=== PATIENT | female | born 1955 | race Caucasian/White ===

== ENCOUNTER → 2017-06-03 | Day surgery (SDC) | payer MEDICAID ==
[~2017-06-03] MED LIST: Lidocaine 1% 20 ML MDV ONE
[2017-06-03 08:50] VITALS: BP 139/92
--- NOTE | 2017-06-04 07:03 | OR ---
DATE OF OPERATION: 06/03/2017 PREOPERATIVE DIAGNOSIS: VENOUS INSUFFICIENCY WITH PAINFUL VARICOSITIES. POSTOPERATIVE DIAGNOSIS: VENOUS INSUFFICIENCY WITH PAINFUL VARICOSITIES. SURGEON: Adryan Fisher MD PROCEDURE: CASSIE, RIGHT GSV. ANESTHESIA: Local tumescent. COMPLICATIONS: None. SPECIMEN: None. FINDINGS: Successfully CASSIE, right GSV. 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 She has elected to proceed with endovenous ablation. DESCRIPTION OF PROCEDURE: The patient was brought to the operating room site and the insufficient saphenous vein mapped via ultrasound and diagrammed on the overlying skin of the right lower extremity along with the access site. The entire limb was prepped and draped in sterile fashion. The patient was placed in reverse Trendelenburg position. Local anesthesia of 1% lidocaine was instilled at the access site. The vein was accessed using ultrasound guidance and Seldinger technique with a guidewire introduced through the needle which was then removed. A small incision was made with an 11 blade scalpel and the sheath was placed over the guidewire and advanced into the vein without complication, the guidewire was removed, and the sheath was flushed. Radiofrequency probe was then placed into the vein through the sheath and positioned approximately 2.2 cm distal to the saphenofemoral junction under ultrasound guidance. After probe position confirmed via ultrasound, tumescent anesthesia was infiltrated under ultrasound guidance into the perivenous compartment along the length of the vein from the entry site to the saphenofemoral junction until a halo fluid was noted around the vein. The patient was then placed back in Trendelenburg position to exsanguinate the superficial venous system. Radiofrequency probe position was confirmed with ultrasound and with direct external compression along the length of the heating element, radiofrequency energy was applied. The vein was segmentally ablated by heating a 7 cm segment and indexing the catheter 4 x 6.5 cm until treatment length complete. Device temperature was maintained at 120 degrees Celsius with an initial power level of 40 osei, dropping to below 20 for each treatment. Total radiofrequency treatment time was 4 minutes with 12 radiofrequency cycles. The catheter and sheath were removed without complication and ultrasound confirmed successful treatment. Hemostasis was achieved with direct pressure and skin dressing was applied. The leg was and was wrapped with compression bandage all way from the level of the foot to the groin. The patient was stable in the recovery room. FATUMA/RACHAEL /[id number]
== END ==
LOC: CC.SDS 06:32
PROVIDERS: ATTEND Family Medicine
DX: I83.811 Varicose veins of right lower extremity with pain (principal); Z88.5 Allergy status to narcotic agent; Z91.013 Allergy to seafood
CPT/HCPCS: 36475; A4216

== ENCOUNTER → 2017-06-16 | Day surgery (SDC) | payer MEDICAID ==
[2017-06-16 08:28] VITALS: BP 150/78
--- NOTE | 2017-06-16 20:34 | OR ---
DATE OF OPERATION: 06/16/2017 PREOPERATIVE DIAGNOSIS: VENOUS INSUFFICIENCY WITH PAINFUL VARICOSITIES. POSTOPERATIVE DIAGNOSIS: VENOUS INSUFFICIENCY WITH PAINFUL VARICOSITIES. SURGEON: Adryan Fisher MD PROCEDURE: CASSIE, LEFT GSV. ANESTHESIA: Local tumescent. COMPLICATIONS: None. SPECIMEN: None. FINDINGS: Successful CASSIE, left GSV. INDICATIONS: The patient has documented saphenofemoral insufficiency with painful varicosities. She elects to proceed with endovenous ablation. DESCRIPTION OF PROCEDURE: The patient was brought to the operating room suite and the insufficient saphenous vein in the left lower extremity mapped via ultrasound and diagrammed on the overlying skin along with the access site just below the knee. The entire limb was prepped and draped in sterile fashion. The patient was placed in reverse Trendelenburg position. 1% lidocaine was used for local anesthesia at the access site. The vein was accessed using ultrasound guidance and Seldinger technique with a needle inserted in the vein, guidewire inserted through the needle which was then exchanged over the guidewire for a 6- Romansh sheath after a small incision made with an 11 blade scalpel. Sheath was held in place by skin tension. Guidewire was removed. The sheath was flushed. The radiofrequency probe was placed into the vein through the sheath and positioned approximately 2.2 cm distal to the saphenofemoral junction under ultrasound guidance. After probe position again verified via ultrasound, tumescent anesthesia was infiltrated into the perivenous compartment along the length of the vein achieving a halo effect from the entry site to the junction in usual fashion. The patient was placed back in Trendelenburg position to exsanguinate the superficial system. The radiofrequency probe position again confirmed via ultrasound and under direct external compression along the length of the heating element, radiofrequency energy was applied. The vein was ablated, heating a 7 cm segment indexing the catheter forward 6.5 cm until treatment length complete. Device temperature was maintained at 120 degrees Celsius with an initial power level of 40 W, dropping to below 20 W for each treatment. Total treatment time was 3 minutes and 40 seconds with 11 radiofrequency cycles. Total of 150 mL of tumescent was used. Repeat ultrasound confirmed treatment catheter and sheath were withdrawn and hemostasis was achieved with direct pressure. Skin incision was closed with a bandage and compression wrap from the level of the foot to the groin. The patient was stable in recovery room. FATUMA/RACHAEL /[id number]
== END ==
LOC: CC.SDS 06:34
PROVIDERS: ATTEND Family Medicine
DX: I83.812 Varicose veins of left lower extremity with pain (principal); I87.2 Venous insufficiency (chronic) (peripheral)

== ENCOUNTER → 2020-05-18 | Day surgery (SDC) | payer MEDICAID ==
[~2020-05-18] MED LIST changes: +Ketamine 200 MG/20 ML MDV ONE; +Lactated Ringers 1,000 ML IV SCH; -Lidocaine 1% 20 ML MDV ONE; +Propofol 200 MG/20 ML SDV ONE
[2020-05-18 09:13] VITALS: BP 113/73; PULSE 61
--- NOTE | 2020-05-18 12:37 | OR ---
DATE OF OPERATION: 05/18/2020 PREOPERATIVE DIAGNOSIS: 1. EPIGASTRIC PAIN. 2. FAMILY HISTORY OF COLON CANCER. POSTOPERATIVE DIAGNOSIS: 1. EPIGASTRIC PAIN. 2. FAMILY HISTORY OF COLON CANCER. SURGEON: Adryan Fisher MD PROCEDURE: 1. DIAGNOSTIC EGD WITH BIOPSIES X3, MITCHELL. 2. FULL-LENGTH COLONOSCOPY. ANESTHESIA: MAC. COMPLICATIONS: None. SPECIMEN: 1. Antral biopsy x1. 2. Fundal biopsy x1. 3. Distal esophageal biopsy x1. 4. Antral MITCHLEL. FINDINGS: 1. Full-length diagnostic EGD. 2. Diffuse gastritis, chronic in nature. 3. Small hiatal hernia with reflux esophagitis and associated nonobstructing Schatzki's ring. 4. Full-length colonoscopy. 5. Mild sigmoid diverticulosis. RECOMMENDATIONS: Routine followup colonoscopy every 5 years, medical followup for her chronic reflux with Kirstin Allen. INDICATIONS: The patient had been having some ongoing epigastric pain and reflux symptoms. She was sent for a diagnostic EGD along with a colonoscopy for a family history of colon cancer. DESCRIPTION OF PROCEDURE: The patient was prepped and draped, placed in the left lateral decubitus position. A lubricated Olympus gastroscope was inserted over a bit, advanced to cricopharyngeus area, and intubated in the esophagus. The esophageal lining was benign in its entire course. The Z-line was crisp around 39 cm. There is a mild- sized hiatal hernia with spontaneous reflux and very mild distal esophagitis associated with a nonobstructing Schatzki's ring. Biopsy was taken of the most affected portion. The scope was advanced into the stomach, through the pylorus, and into the second portion of the duodenum. This and the duodenal bulb were both benign. The scope was brought back into the stomach and retroflexed. The upper fundus and cardia were essentially benign. Starting in the proximal portion of the fundus and extending all the way through the antrum, the patient had diffuse and chronic- appearing gastritis without any active inflammation or ulceration. Biopsy of the antrum and fundus were taken along with an antral MITCHELL. Air was then suctioned from the stomach and the scope removed without complication. A lubricated Olympus colonoscope was then inserted and with ease advanced to the cecum. Direct visualization of the ileocecal valve and appendiceal orifice were accomplished. The bowel prep was excellent. Upon withdrawal of the scope throughout the entire length of the colon, I could find no polyps, masses, ulceration, or bleeding sites. No vascular abnormalities or signs of colitis. The patient had a few scattered diverticula in the sigmoid, mild in severity without any inflammatory change. The rectal vault was benign. Retroflexion of the scope in the rectum showed no perianal lesions. Air was suctioned, scope removed without complication. FATUMA/RACHAEL /[id number]
== END ==
LOC: CC.SDS 07:44
PROVIDERS: ATTEND Family Medicine
DX: Z12.11 Encounter for screening for malignant neoplasm of colon (principal); K29.50 Unspecified chronic gastritis without bleeding; K44.9 Diaphragmatic hernia without obstruction or gangrene; K21.00 Gastro-esophageal reflux disease with esophagitis, without bleeding; G25.81 Restless legs syndrome; K22.2 Esophageal obstruction; K57.30 Diverticulosis of large intestine without perforation or abscess without bleeding; Z01.812 Encounter for preprocedural laboratory examination; Z20.822 Contact with and (suspected) exposure to COVID-19; Z80.0 Family history of malignant neoplasm of digestive organs; E78.00 Pure hypercholesterolemia, unspecified; I10 Essential (primary) hypertension; G62.9 Polyneuropathy, unspecified; I87.2 Venous insufficiency (chronic) (peripheral); Z88.5 Allergy status to narcotic agent; Z91.013 Allergy to seafood; Z79.899 Other long term (current) drug therapy; Z90.49 Acquired absence of other specified parts of digestive tract; Z87.891 Personal history of nicotine dependence
CPT/HCPCS: 00813; 87081; J2001; J2704; J7120

== ENCOUNTER 2020-10-12 23:24 | Emergency (ER) | payer MEDICAID ==
[2020-10-13 00:10] VITALS: PULSE 76
[2020-10-13 00:22] LABS: CHLORIDE,CL 99 mEq/L (98-106); PTT,PARTIAL THROMBOPLSTIN TIME 24.3 SEC (23.2-32.3); SODIUM,NA 140 mEq/L (136-145)
[2020-10-13 00:23] VITALS: BP 143/99
--- NOTE | 2020-10-13 00:23 | EDM.PDOC ---
ED HPI GENERAL MEDICAL PROBLEM - General Chief Complaint: General Stated Complaint: "pressure in the head, heart pounding" Time Seen by Provider: 10/13/20 00:05 Source of Information: Reports: Patient History Limitations: Reports: No Limitations - History of Present Illness INITIAL COMMENTS - FREE TEXT/NARRATIVE: Clair is a 65 year old female who presents to ER with complaints of palpitations and elevated blood pressure. Was noting discomfort under her left breast. Harrison like her arms and feet were tingling "for no reason". Denies shortness of breath, no nausea/vomiting or diaphoresis. Had headache with pressure behind her eyes. Took her blood pressure initially and diastolic was over 90 so rechecked every 2 hours. Got scared when starting running over 100 diastolic. Recently had blood pressure meds changed due to hypotension. Taking her Lisinopril/HCTZ and was holding her Atenolol. Blood pressure had been good the last few days until tonight. Had been staying indoors out of the heat, no increased caffeine or salt intake. Onset: Today, Gradual Duration: Hour(s):, Improving Location: Reports: Head, Chest, Abdomen Quality: Reports: Ache Severity: Mild Improves with: Reports: Rest Associated Symptoms: Reports: Chest Pain. Denies: Confusion, Cough, Diaphoresis, Fever/Chills, Loss of Appetite, Malaise, Nausea/Vomiting, Shortness of Breath, Syncope, Weakness Right Arm Pain Score (Numeric/FACES): 4 - Related Data Allergies Allergy/AdvReac Type Severity Reaction Status Date / Time codeine Allergy Shaking Verified 10/12/20 23:33 hydrocodone Allergy Shaking Verified 10/12/20 23:33 shellfish derived Allergy Shaking Verified 10/12/20 23:33 Home Meds: Home Meds Vitamin B Complex [B Complex] 1 each PO DAILY 08/18/14 [History] Pantoprazole [ProTONIX] 40 mg PO DAILY 08/10/18 [History] Ibuprofen 200 mg PO ASDIRECTED PRN 11/30/18 [History] Lisinopril/Hydrochlorothiazide [Lisinopril-Hctz 20-12.5 mg Tab] 1 each PO DAILY 11/30/18 [History] Cholecalciferol (Vitamin D3) [Vitamin D3] 25 mcg PO DAILY 05/18/20 [History] Rosuvastatin [Crestor] 10 mg PO DAILY 10/12/20 [History] Past Medical History Cardiovascular History: Reports: High Cholesterol, Hypertension Gastrointestinal History: Reports: GERD Neurological History: Reports: Headaches, Chronic - Past Surgical History HEENT Surgical History: Reports: Tonsillectomy GI Surgical History: Reports: Appendectomy Female Surgical History: Reports: Section Musculoskeletal Surgical History: Reports: Knee Replacement Social & Family History - Tobacco Use Tobacco Use Status *Q: Never Tobacco User ED ROS GENERAL - Review of Systems Review Of Systems: See Below Constitutional: Denies: Fever, Chills, Malaise, Weakness, Fatigue, Decreased [place] et[place] HEENT: Reports: Vertigo. Denies: Ear Pain, Sinus Problem, Throat Pain Respiratory: Denies: Shortness of Breath, Cough Cardiovascular: Reports: Chest Pain. Denies: Edema, Lightheadedness Endocrine: Denies: Fatigue GI/Abdominal: Denies: Abdominal Pain, Constipation, Diarrhea, Nausea, Vomiting : Reports: No Symptoms Musculoskeletal: Reports: No Symptoms Skin: Reports: No Symptoms Neurological: Reports: Dizziness, Headache Psychiatric: Reports: No Symptoms ED EXAM, GENERAL - Physical Exam Exam: See Below Exam Limited By: No Limitations General Appearance: Alert, WD/WN, No Apparent Distress Eye Exam: Bilateral Eye: PERRL Ears: Normal External Exam, Normal TMs Nose: Normal Inspection, Normal Mucosa, No Blood Throat/Mouth: Normal Inspection, Normal Oropharynx Head: Normocephalic Neck: Normal Inspection, Supple, Non-Tender Respiratory/Chest: No Respiratory Distress, Lungs Clear, Normal Breath Sounds Cardiovascular: Regular Rate, Rhythm GI/Abdominal: Normal Bowel Sounds, Soft, Non-Tender Extremities: Normal Inspection, No Pedal Edema Neurological: Alert, Oriented Skin Exam: Warm, Dry #1 Interpretation EKG Date: 10/13/20 Rhythm: NSR P-Wave: Present QRS: Normal ST-T: Normal Course - Vital Signs Last Recorded V/S: Last Vital Signs Temp 97.3 F 10/13/20 00:08 Pulse 76 10/13/20 00:22 Resp 18 10/13/20 00:22 BP 143/99 H 10/13/20 00:22 Pulse Ox 95 10/13/20 00:22 - Orders/Labs/Meds Orders: Active Orders 24 hr Category Date Time Status CXR [Chest 2V] [CR] Stat Exams 10/12/20 23:47 Taken Labs: Laboratory Tests 10/12/20 10/12/20 10/12/20 Range/Units 00:00 00:00 00:00 WBC 11.3 H (4.0-11.0) 10^3/uL RBC 4.77 (4.00-5.50) x10^6/uL Hgb 14.3 (12.0-16.0) g/dL Hct 42.6 (37.0-47.0) % MCV 89.3 (83.0-97.0) fL MCH 30.0 (27.0-32.0) pg MCHC 33.6 (32.0-36.0) g/dL RDW Coeff of Kasey 12.7 (11.0-15.0) % Plt Count 224 (150-400) 10^3/uL Neut % (Auto) 46.5 (41-71) % Lymph % (Auto) 43.4 (24-44) % Dane % (Auto) 7.2 (0-10) % Eos % (Auto) 2.4 (0-6) % Baso % (Auto) 0.5 (0-1) % PT 10.5 (9.3-11.4) SEC INR 0.96 (0.92-1.18) APTT 24.3 (23.2-32.3) SEC Sodium 140 (136-145) mEq/L Potassium 3.6 D (3.5-5.0) mEq/L Chloride 99 (98-106) mEq/L Carbon Dioxide 30 (21-32) mmol/L BUN 18 (7-18) mg/dL Creatinine 1.0 (0.6-1.0) mg/dL Est Cr Clr Drug Dosing 45.54 mL/min Estimated GFR (MDRD) 56 L (>=60) mL/min Glucose 124 H (75-99) mg/dL Calcium 9.5 (8.4-10.1) mg/dL Magnesium 1.9 (1.8-2.4) mg/dL Total Bilirubin 1.1 H (0.0-1.0) mg/dL AST 17 (15-37) U/L ALT 34 (12-78) U/L Alkaline Phosphatase 113 (46-116) U/L Lactate Dehydrogenase 173 (100-190) U/L Creatine Kinase 113 (21-215) U/L Troponin I < 0.017 (0.00-0.06) ng/mL Total Protein 7.5 (6.4-8.2) g/dL Albumin 3.9 (3.4-5.0) g/dL Lipase 101 (73-393) U/L - Re-Assessments/Exams Free Text/Narrative Re-Assessment/Exam: 10/13/20 00:30 Labs unremarkable. Chest xray is clear. EKG NSR. Patient informed. Had recently stopped taking her Atenolol which could account for the palpitati ons/elevated pulse and blood pressure. Will have her take a 1/2 tab if pulse greater than 90 and blood pressure greater than 140/90 in the evening as has not been consistently high. Departure - Departure Time of Disposition: 00:32 Disposition: Home, Self-Care 01 Condition: Good Clinical Impression: Palpitations with regular cardiac rhythm - Discharge Information *PRESCRIPTION DRUG MONITORING PROGRAM REVIEWED*: No *COPY OF PRESCRIPTION DRUG MONITORING REPORT IN PATIENT KATHYA: No Instructions: Palpitations, [id number] Referrals: PCP,None [Primary Care Provider] - Forms: ED Department Discharge Additional Instructions: 1. Rest 2. Push fluids 3. Take Atenolol 1/2 tab if pulse greater than 90 with associated blood pressure of greater than 140/90 in the evening. 4. Follow up on Thursday in [place] as previously planned. Sepsis Event Note (ED) - Evaluation Sepsis Screening Result: No Definite Risk - Focused Exam Vital Signs: Vital Signs Temp Pulse Resp BP Pulse Ox 10/13/20 00:22 76 18 143/99 H 95 10/13/20 00:08 97.3 F 76 18 162/92 H 95 10/12/20 23:48 80 18 169/104 H 95 10/12/20 23:33 97 F 83 20 148/90 H 96 - My Orders Last 24 Hours: My Active Orders 10/12/20 23:47 CXR [Chest 2V] [CR] Stat - Assessment/Plan Last 24 Hours: My Active Orders 10/12/20 23:47 CXR [Chest 2V] [CR] Stat
== END 2020-10-13 00:36 | disposition home or self-care (01) ==
LOC: CC.ED 23:24
DX: R00.2 Palpitations (principal); E78.00 Pure hypercholesterolemia, unspecified; I10 Essential (primary) hypertension; K21.9 Gastro-esophageal reflux disease without esophagitis; Z88.5 Allergy status to narcotic agent; Z91.013 Allergy to seafood; Z79.899 Other long term (current) drug therapy
CPT/HCPCS: 36415; 71046; 80053; 82550; 83615; 83690; 83735; 84484; 85025; 85610; 85730; 99285-25

== ENCOUNTER 2023-11-12 12:42 | Emergency (ER) | payer MEDICARE, MEDICAID ==
[2023-11-12] MEDS ORDERED: Sodium Chloride 0.9% 10 ML Syringe FLUSH PRN (13:02)
[2023-11-12 13:18] LABS: BASOPHILS ABSOLUTE AUTO 0.08 10^3/uL (0.00-0.50); BASOPHILS PERCENT AUTO 0.8 % (0-1); EOSINOPHILS ABSOLUTE AUTO 0.15 10^3/uL (0.00-1.50); EOSINOPHILS PERCENT AUTO 1.5 % (0-6); HEMATOCRIT 42.8 % (37.0-47.0); HEMOGLOBIN 14.3 g/dL (12.0-16.0); IMMATURE GRAN ABSOLUTE AUTO 0.02 10^3/uL (0.00-0.49); IMMATURE GRAN PERCENT AUTO 0.2 % (0.0-4.9); LYMPHOCYTES ABSOLUTE AUTO 3.88 10^3/uL (0.60-5.00); LYMPHOCYTES PERCENT AUTO 38.5 % (24-44); MEAN CORPUSCULAR HGB CONC 33.4 g/dL (32.0-36.0); MEAN CORPUSCULAR VOLUME 89.7 fL (83.0-97.0); MONOCYTES ABSOLUTE AUTO 0.63 10^3/uL (0.00-1.50); MONOCYTES PERCENT AUTO 6.2 % (0-10); NEUTROPHILS ABSOLUTE AUTO 5.33 x10^3/uL (1.80-8.00); NEUTROPHILS PERCENT AUTO 52.8 % (41-71); PLATELET COUNT,PLT 236 10^3/uL (150-400); RED BLOOD CELL COUNT 4.77 x10^6/uL (4.00-5.50); WHITE BLOOD CELL COUNT,WBC 10.1 10^3/uL (4.0-11.0)
[2023-11-12 13:21] LABS: APPEARANCE,URINE CLEAR (CLEAR); BILIRUBIN,URINE NEGATIVE (NEGATIVE); COLOR,URINE YELLOW (YELLOW); GLUCOSE,URINE NEGATIVE (NEGATIVE); KETONES,URINE NEGATIVE (NEGATIVE); LEUKOCYTE ESTERASE,URINE NEGATIVE (NEGATIVE); NITRITE,URINE NEGATIVE (NEGATIVE); PROTEIN,URINE NEGATIVE (NEGATIVE); UROBILINOGEN,URINE 0.2 EU/dL (0.2-1.0)
[2023-11-12 13:25] LABS: OCCULT BLOOD,URINE NEGATIVE (NEGATIVE)
[2023-11-12] MEDS: Sodium Chloride 0.9% 1,000 ML IV ONE (13:30)
[2023-11-12 13:36] LABS: ALANINE AMINOTRANSFERASE,ALT 28 U/L (12-78); ALBUMIN 4.1 g/dL (3.4-5.0); ALKALINE PHOSPHATASE 103 U/L (46-116); ASPARTATE AMNIOTRANSFERASE,AST 27 U/L (15-37); BILIRUBIN TOTAL 2.5 mg/dL (0.0-1.0); BLOOD UREA NITROGEN,BUN 15 mg/dL (7-18); CALCIUM 9.9 mg/dL (8.4-10.1); CARBON DIOXIDE,CO2 29 mmol/L (21-32); CHLORIDE,CL 100 mEq/L (98-106); CREATININE 1.1 mg/dL (0.6-1.0); GLUCOSE RANDOM 123 mg/dL (75-99); LIPASE 31 U/L (16-77); POTASSIUM,K 3.6 mEq/L (3.5-5.0); PROTEIN TOTAL,TP 7.8 g/dL (6.4-8.2); SODIUM,NA 141 mEq/L (136-145)
[2023-11-12 13:37] LABS: C-REACTIVE PROTEIN < 0.50 mg/dL (<=0.50); ESTIMATED GFR 55 mL/min (>=60)
[2023-11-12] MEDS: Iopamidol 755 Mg/ML 100 ML Bottle IVPUSH ONE (14:20)
[2023-11-12 18:57] VITALS: BP 150/87; PULSE 90
== END 2023-11-12 16:10 | disposition home or self-care (01) ==
LOC: CC.ED 12:42
DX: R10.31 Right lower quadrant pain (principal); E78.00 Pure hypercholesterolemia, unspecified; I10 Essential (primary) hypertension; K21.9 Gastro-esophageal reflux disease without esophagitis; Z88.5 Allergy status to narcotic agent; Z91.013 Allergy to seafood; Z79.899 Other long term (current) drug therapy
CPT/HCPCS: 36415; 74177; 80053; 81003; 83690; 85025; 86140; 96360; 99284-25; J7030; Q9967

== ENCOUNTER 2024-01-28 20:53 | Emergency (ER) | payer MEDICARE, MEDICAID ==
[2024-01-28 21:11] LABS: APPEARANCE,URINE CLEAR (CLEAR); BILIRUBIN,URINE NEGATIVE (NEGATIVE); COLOR,URINE YELLOW (YELLOW); GLUCOSE,URINE NEGATIVE (NEGATIVE); KETONES,URINE NEGATIVE (NEGATIVE); LEUKOCYTE ESTERASE,URINE NEGATIVE (NEGATIVE); NITRITE,URINE NEGATIVE (NEGATIVE); OCCULT BLOOD,URINE TRACE-INTACT (NEGATIVE); PROTEIN,URINE NEGATIVE (NEGATIVE); UROBILINOGEN,URINE 0.2 EU/dL (0.2-1.0)
[2024-01-28 21:18] LABS: RBC,URINE 0-5 /HPF (0-5); WBC,URINE 0-5 /HPF (0-5)
[2024-01-28 21:19] LABS: BACTERIA,URINE FEW /HPF (NOT SEEN); SQUAMOUS EPITHELIAL CELLS,UR FEW /HPF (NOT SEEN)
[2024-01-28 21:19] LABS: BASOPHILS ABSOLUTE AUTO 0.09 10^3/uL (0.00-0.50); BASOPHILS PERCENT AUTO 0.7 % (0-1); EOSINOPHILS PERCENT AUTO 2.4 % (0-6); HEMATOCRIT 37.1 % (37.0-47.0); HEMOGLOBIN 12.4 g/dL (12.0-16.0); IMMATURE GRAN ABSOLUTE AUTO 0.02 10^3/uL (0.00-0.49); IMMATURE GRAN PERCENT AUTO 0.2 % (0.0-4.9); LYMPHOCYTES ABSOLUTE AUTO 6.32 10^3/uL (0.60-5.00); LYMPHOCYTES PERCENT AUTO 51.5 % (24-44); MEAN CORPUSCULAR HEMOGLOBIN 30.2 pg (27.0-32.0); MEAN CORPUSCULAR HGB CONC 33.4 g/dL (32.0-36.0); MEAN CORPUSCULAR VOLUME 90.3 fL (83.0-97.0); MONOCYTES ABSOLUTE AUTO 0.77 10^3/uL (0.00-1.50); MONOCYTES PERCENT AUTO 6.3 % (0-10); NEUTROPHILS ABSOLUTE AUTO 4.77 x10^3/uL (1.80-8.00); NEUTROPHILS PERCENT AUTO 38.9 % (41-71); PLATELET COUNT,PLT 208 10^3/uL (150-400); RED BLOOD CELL COUNT 4.11 x10^6/uL (4.00-5.50); WHITE BLOOD CELL COUNT,WBC 12.3 10^3/uL (4.0-11.0)
[2024-01-28 21:30] VITALS: BP 152/81; PULSE 78
[2024-01-28 21:32] LABS: ALANINE AMINOTRANSFERASE,ALT 22 U/L (12-78); ALBUMIN 3.7 g/dL (3.4-5.0); ALKALINE PHOSPHATASE 95 U/L (46-116); ASPARTATE AMNIOTRANSFERASE,AST 19 U/L (15-37); BILIRUBIN TOTAL 1.5 mg/dL (0.0-1.0); BLOOD UREA NITROGEN,BUN 21 mg/dL (7-18); CALCIUM 9.1 mg/dL (8.4-10.1); CARBON DIOXIDE,CO2 28 mmol/L (21-32); CHLORIDE,CL 96 mEq/L (98-106); CREATININE 1.1 mg/dL (0.6-1.0); GLUCOSE RANDOM 120 mg/dL (75-99); LIPASE 38 U/L (16-77); POTASSIUM,K 3.3 mEq/L (3.5-5.0); PROTEIN TOTAL,TP 6.5 g/dL (6.4-8.2); SODIUM,NA 134 mEq/L (136-145)
[2024-01-28 21:35] LABS: C-REACTIVE PROTEIN < 0.50 mg/dL (<=0.50); EST CRCL DRUG DOSING (CG) 39.25 mL/min; ESTIMATED GFR 55 mL/min (>=60)
[2024-01-28] MEDS: Iopamidol 755 Mg/ML 100 ML Bottle IVPUSH ONE (22:08)
[2024-01-29] MEDS: Ketorolac 30 MG/ML SDV IVPUSH ONE (00:30)
== END 2024-01-29 01:00 | disposition home or self-care (01) ==
LOC: CC.ED 20:53
DX: R10.11 Right upper quadrant pain (principal); E78.00 Pure hypercholesterolemia, unspecified; I10 Essential (primary) hypertension; K21.9 Gastro-esophageal reflux disease without esophagitis; Z79.899 Other long term (current) drug therapy; Z88.5 Allergy status to narcotic agent; Z91.013 Allergy to seafood
CPT/HCPCS: 36415; 74177; 80053; 81001; 83690; 85025; 86140; 96374; 99284; J1885; Q9967

== ENCOUNTER 2024-01-31 13:16 | Emergency (ER) | payer MEDICARE, MEDICAID ==
[2024-01-31 13:21] VITALS: BP 139/75; PULSE 69
[2024-01-31] MEDS: Ketorolac 30 MG/ML SDV IM STA (13:29)
[2024-01-31] MEDS: Orphenadrine 60 MG/2 ML Inj IM ONE (13:29)
[2024-01-31 13:46] LABS: BASOPHILS ABSOLUTE AUTO 0.09 10^3/uL (0.00-0.50); BASOPHILS PERCENT AUTO 0.9 % (0-1); EOSINOPHILS ABSOLUTE AUTO 0.27 10^3/uL (0.00-1.50); EOSINOPHILS PERCENT AUTO 2.7 % (0-6); HEMOGLOBIN 13.5 g/dL (12.0-16.0); IMMATURE GRAN ABSOLUTE AUTO 0.02 10^3/uL (0.00-0.49); IMMATURE GRAN PERCENT AUTO 0.2 % (0.0-4.9); LYMPHOCYTES ABSOLUTE AUTO 4.09 10^3/uL (0.60-5.00); MEAN CORPUSCULAR HEMOGLOBIN 29.9 pg (27.0-32.0); MEAN CORPUSCULAR HGB CONC 32.9 g/dL (32.0-36.0); MEAN CORPUSCULAR VOLUME 90.9 fL (83.0-97.0); MONOCYTES ABSOLUTE AUTO 0.68 10^3/uL (0.00-1.50); MONOCYTES PERCENT AUTO 6.8 % (0-10); NEUTROPHILS ABSOLUTE AUTO 4.83 x10^3/uL (1.80-8.00); NEUTROPHILS PERCENT AUTO 48.4 % (41-71); PLATELET COUNT,PLT 221 10^3/uL (150-400); RED BLOOD CELL COUNT 4.51 x10^6/uL (4.00-5.50)
[2024-01-31 13:49] LABS: APPEARANCE,URINE CLEAR (CLEAR); BILIRUBIN,URINE NEGATIVE (NEGATIVE); COLOR,URINE YELLOW (YELLOW); GLUCOSE,URINE NEGATIVE (NEGATIVE); KETONES,URINE NEGATIVE (NEGATIVE); LEUKOCYTE ESTERASE,URINE NEGATIVE (NEGATIVE); NITRITE,URINE NEGATIVE (NEGATIVE); OCCULT BLOOD,URINE TRACE-INTACT (NEGATIVE); PH,URINE 6.5 (4.5-8.0); PROTEIN,URINE NEGATIVE (NEGATIVE); UROBILINOGEN,URINE 0.2 EU/dL (0.2-1.0)
[2024-01-31 13:58] LABS: ALANINE AMINOTRANSFERASE,ALT 22 U/L (12-78); ALBUMIN 4.2 g/dL (3.4-5.0); ALKALINE PHOSPHATASE 97 U/L (46-116); ASPARTATE AMNIOTRANSFERASE,AST 19 U/L (15-37); BLOOD UREA NITROGEN,BUN 12 mg/dL (7-18); CALCIUM 9.4 mg/dL (8.4-10.1); CARBON DIOXIDE,CO2 31 mmol/L (21-32); CHLORIDE,CL 99 mEq/L (98-106); CREATININE 0.9 mg/dL (0.6-1.0); EST CRCL DRUG DOSING (CG) 47.97 mL/min; GLUCOSE RANDOM 104 mg/dL (75-99); PROTEIN TOTAL,TP 7.5 g/dL (6.4-8.2); SODIUM,NA 138 mEq/L (136-145)
[2024-01-31 14:06] LABS: BACTERIA,URINE FEW /HPF (NOT SEEN); EPITHELIAL CELLS,URINE FEW /HPF (NOT SEEN); RBC,URINE 0-5 /HPF (0-5); WBC,URINE 0-5 /HPF (0-5)
[2024-01-31 14:07] LABS: C-REACTIVE PROTEIN < 0.50 mg/dL (<=0.50); ESTIMATED GFR 70 mL/min (>=60)
== END 2024-01-31 14:45 | disposition home or self-care (01) ==
LOC: CC.ED 13:16
DX: R10.9 Unspecified abdominal pain (principal); R10.811 Right upper quadrant abdominal tenderness; I10 Essential (primary) hypertension; E78.00 Pure hypercholesterolemia, unspecified; Z88.5 Allergy status to narcotic agent; Z79.899 Other long term (current) drug therapy; Z90.49 Acquired absence of other specified parts of digestive tract
CPT/HCPCS: 36415; 80053; 81001; 85025; 86140; 96372; 99284; J1885; J2360

== ENCOUNTER 2025-04-21 08:51 | Day surgery (SDC) | payer MEDICARE, MEDICAID ==
[~2025-04-21 08:51] MED LIST changes: -Ketamine 200 MG/20 ML MDV ONE; -Propofol 200 MG/20 ML SDV ONE
[2025-04-21] MEDS ORDERED: Ketamine 200 MG/20 ML MDV ONE (09:41)
[2025-04-21] MEDS ORDERED: Flumazenil 0.1 MG/ML 5 ML MDV ONE (09:41)
[2025-04-21] MEDS ORDERED: Propofol 200 MG/20 ML SDV ONE (09:41)
[2025-04-21] MEDS ORDERED: Midazolam 1 MG/ML 2 ML SDV ONE (09:41)
[2025-04-21 12:04] VITALS: BP 133/76; PULSE 54
== END 2025-04-21 10:50 | disposition home or self-care (01) ==
LOC: CC.SDS 08:51
PROVIDERS: ATTEND Family Medicine
DX: Z12.11 Encounter for screening for malignant neoplasm of colon (principal); K63.5 Polyp of colon; K57.30 Diverticulosis of large intestine without perforation or abscess without bleeding; I10 Essential (primary) hypertension; K21.9 Gastro-esophageal reflux disease without esophagitis; E78.5 Hyperlipidemia, unspecified; Z86.0100 Personal history of colon polyps, unspecified; Z88.5 Allergy status to narcotic agent; Z88.6 Allergy status to analgesic agent; Z91.013 Allergy to seafood; Z88.8 Allergy status to other drugs, medicaments and biological substances; Z79.899 Other long term (current) drug therapy
CPT/HCPCS: 00811; 88305; J2250; J2704; J3490